=== PATIENT | female | born 1985 | race Two or more races ===

== ENCOUNTER 2017-04-24 19:52 | Emergency (ER) | payer OTHER ==
[~2017-04-24] VITALS: Ht 172.7 cm; Wt 47.6 kg
--- NOTE | 2017-04-24 19:55 | NUR ---
Alina slade in ED - 04/24/17 at 2257 by CHRISSY REFUSED TO BE SEEN BY CALLIE BUENROSTRO "I WANNA LEAVE NOW". DR VILLA AWARE
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
--- NOTE | 2017-04-24 19:59 | NUR ---
Alina slade in ED - 04/24/17 at 2257 by CHRISSY STILL REFUSES TO BE SEEN. DEMANDED TO REMOVE HL "SO I CAN LEAVE". IV HL REMOVED.
--- NOTE | 2017-04-24 20:15 | NUR ---
ASSISTED MD AT BEDSIDE WITH PELVIC EXAM. SPECIMAN SENT TO LAB.
[2017-04-24] MEDS ORDERED: ACETAMINOPHEN 325 MG TABLET ONE (21:15)
[2017-04-24] MEDS: ACETAMINOPHEN 325 MG TABLET PO ONE (21:17)
[2017-04-24 21:19] LABS: BASOPHILS % (AUTO) 0.3 % (0.0-2.0); EOSINOPHILS # (AUTO) 0.1 /CMM (0.0-0.7); EOSINOPHILS % (AUTO) 0.7 % (0.0-6.0); HEMATOCRIT 31 % (33-45); HEMOGLOBIN 10.7 g/dL (11.5-14.8); LYMPHOCYTES % (AUTO) 7.2 % (20.0-44.0); MEAN CORPUSCULAR HEMOGLOBIN 27 PG (26.0-33.0); MEAN CORPUSCULAR HGB CONC 34 g/dl (31.0-36.0); MEAN CORPUSCULAR VOLUME 78 fL (82-100); MONOCYTES # (AUTO) 0.4 /CMM (0.1-1.30); MONOCYTES % (AUTO) 2.8 % (2.0-12.0); NEUTROPHILS # (AUTO) 12.8 /CMM (1.8-8.9); PLATELET COUNT (AUTO) 475 /CMM (150-450); RDW COEFFICIENT OF VARIATION 12.4 (11.5-15.0); RED BLOOD CELL COUNT(AUTO) 3.97 MIL/uL (4.0-5.2); WHITE BLOOD COUNT (AUTO) 14.3 K/uL (4.3-11.0)
[2017-04-24 21:22] LABS: CALCIUM, SERUM 9.3 mg/dL (8.5-10.1); CREATININE 0.5 mg/dL (0.6-1.3); POTASSIUM 4.2 mmol/L (3.5-5.1)
[2017-04-24 21:28] LABS: INR 0.88 (0.87-1.13)
--- NOTE | 2017-04-24 22:02 | NUR ---
ASSISTED PATIENT TO THE BATHROOM. AMBULATED WITH STEADY GAIT.
--- NOTE | 2017-04-25 00:10 | NUR ---
VERIFIED [facility]OG[employer] PRODUCT & PATIENT INFO WITH JUSTO ANDINO RN PRIOR TO ADMINISTRATION.
--- NOTE | 2017-04-25 00:16 | NUR ---
[facility] 300MCG IM TO R DELTOID. VERIFIED WITH CLYDE YARBROUGH. LOT#[id number];EXP 03/19/19. UNIT #[id number]
--- NOTE | 2017-04-25 00:19 | NUR ---
Patient discharged with to home in stable condition. Written and verbal after care instructions given. Patient verbalizes understanding of instruction.
[2017-04-25 00:20] VITALS: BP 104/57
== END 2017-04-25 00:28 | disposition home or self-care (01) ==
LOC: ER 19:53
DX: O20.0 Threatened abortion (principal)
CPT/HCPCS: 36415; 76856-TC; 80048-TC; 84702-TC; 85025-TC; 85730-TC; 88305-TC; A4606; J7040; P9016-BL; Z7610